=== PATIENT | female | born 1970 | race African-American/Black ===

== ENCOUNTER → 2025-01-04 | Outpatient (REF) | payer OTHER, BC ==
[~2025-01-04] MED LIST: IOPAMIDOL 370 MG/ML 100 ML INFUS..BTL INJ ONE; METOPROLOL TARTRATE 25 MG TAB ONE; NITROGLYCERIN 0.4 MG SUBL ONE
== END ==
LOC: CT 11:13
PROVIDERS: ATTEND Internal Medicine Cardiovascular Disease
DX: R94.31 Abnormal electrocardiogram [ECG] [EKG] (principal)
CPT/HCPCS: 75574; Q9967